=== PATIENT | female | born 1995 | race Caucasian/White ===

== ENCOUNTER 2023-12-04 20:43 | Emergency (ER) | payer OTHER, SELFPAY ==
[2023-12-04 21:22] VITALS: BP 139/69; PULSE 80; RESP 15; TEMP 36.7; O2SAT 100
[2023-12-04 23:38] VITALS: BP 119/85; PULSE 71; RESP 14; TEMP 36.6; O2SAT 99
--- NOTE | 2023-12-05 00:19 | ED.EAR ---
HPI - Ear Problem General Chief complaint: Ear Stated complaint: Left ear infection, bleeding Time Seen by Provider: 12/04/23 23:29 Source: patient Mode of arrival: ambulatory Limitations: no limitations History of Present Illness HPI Narrative: this is a 27-year-old female that presents to the emergency department for left ear pain. Ongoing since last night. Reports bloody drainage from the ear. Denies fevers. Related Data Allergies Allergy/AdvReac Type Severity Reaction Status Date / Time No Known Allergies Allergy Unverified 12/04/23 21:26 Review of Systems Review of Systems: CONSTITUTIONAL: Denies fever ENT: Reports otalgia. All systems reviewed & are unremarkable except as noted in HPI and below PMFSH Past Medical History Medical History (Updated 12/05/23 @ 00:33 by Cyn Sullivan PA-C) Chronic otitis media of left ear with effusion Family History Family History Father Hypertension Mother Hypertension Grandparent Melanoma Social History Social History Social History: Caffeine- 1 cup daily Smoking status: Never smoker Alcohol intake: current Alcohol use details: socially Substance use: never Substance use type: does not use Lack of Transportation: No Lack of Food: Never True Current Housing: I Have Housing Concerned About Future Housing: No Difficulty Paying Gas/Electric Bills: No Difficulty Paying for Meds: No Currently Unemployed: No Education: Associate Degree Difficulty w/ Childcare or Family Care: No Living arrangements: with family Occupation/Education: occupation Additional occupation/education comments: [employer] Gender identity (if verbalized by the patient): Female Agree to blood products: Yes Exam Narrative: GENERAL: Well-appearing, well-nourished, and in no acute distress. HEAD: Normocephalic, atraumatic. EYES: EOMI. ENT: Right TM pearly rolle non-bulging. Left external auditory canal quite swollen with bloody drainage. No mastoid erythema or edema CHEST: No respiratory distress. HEART: Regular rate EXTREMITIES: Normal range of motion. No edema. SKIN: Warm, dry, no rash. NEURO: No focal deficits. Alert and oriented x3. PSYCH: Normal mood and affect Course Course Emergency Course: Patient agrees with plan of care Vital Signs Vital signs: Vital Signs Temperature 98.1 F 12/04/23 21:22 Pulse Rate 80 12/04/23 21:22 Respiratory Rate 15 12/04/23 21:22 Blood Pressure 139/69 12/04/23 21:22 Pulse Oximetry 100 12/04/23 21:22 Oxygen Delivery Room Air 12/04/23 21:22 Temperature 98 F 12/04/23 23:38 Pulse Rate 71 12/04/23 23:38 Respiratory Rate 14 12/04/23 23:38 Blood Pressure 119/85 12/04/23 23:38 Pulse Oximetry 99 12/04/23 23:38 Oxygen Delivery Room Air 12/04/23 21:22 Medical Decision Making MDM Narrative Medical decision making narrative: Patient presents to the ER for pain and swelling to the external auditory canal. She is afebrile and nontoxic appearing. No erythema or edema of the mastoid. Patient is quite swollen with bloody drainage. I did place an ear wick. Patient will be started on Ciprodex. Also oral antibiotics. She does have an ENT doctor for follow up. she was given warnings to return to the ER Vital Signs Vital Signs: Vital Signs Temperature 98.1 F 12/04/23 21:22 Pulse Rate 80 12/04/23 21:22 Respiratory Rate 15 12/04/23 21:22 Blood Pressure 139/69 12/04/23 21:22 Pulse Oximetry 100 12/04/23 21:22 Oxygen Delivery Room Air 12/04/23 21:22 Temperature 98 F 12/04/23 23:38 Pulse Rate 71 12/04/23 23:38 Respiratory Rate 14 12/04/23 23:38 Blood Pressure 119/85 12/04/23 23:38 Pulse Oximetry 99 12/04/23 23:38 Oxygen Delivery Room Air 12/04/23 21:22 Critical Care Time Critical Care Time Critical Care Time:
== END 2023-12-05 00:31 | disposition home or self-care (01) ==
PROVIDERS: Emergency Provider Physician Assistant; PCP Family Medicine
DX: H60.502 Unspecified acute noninfective otitis externa, left ear (principal)
CPT/HCPCS: 99283